=== PATIENT | male | born 1935 | race Caucasian/White ===

== ENCOUNTER → 2016-06-06 | Outpatient (CLI) | payer MEDICARE ==
[~2016-06-06] MED LIST: ACID CONTROL150 MG; ASPIRIN LO-DOSE81 MG; COLACE100 MG PO; COREG 3.1253.125 MG PO; COZAAR100 MG PO; FLONASE 50 MCG/16 GM NOSE; GLUCOPHAGE1000 MG; GLUCOPHAGE1000 MG PO; HUMIBID LA (MU600 MG; HYDROCHLOROTHIA25 MG; LANTUS (IN100 UNIT/M; LIPITOR40 MG; NOVOLOG100 UNIT/M; PROVENTIL OR V6.7 GM; RENA-VITE RX T1 EACH; SINGULAIR10 MG PO; SYMBICORT 80-10.2 GM INH; TEMOVATE60 GM; TYLENOL325 MG
== END | disposition disaster alternative care site (69) ==
LOC: LFPA 11:37
DX: L03.90 Cellulitis, unspecified (principal)